=== PATIENT | female | born 1935 | race Caucasian/White ===

== ENCOUNTER → 2021-01-15 20:03 | Outpatient (CLI) | payer MEDICARE ==
[2021-01-15 21:10] LABS: HEMOGLOBIN 9.8 g/dL (12-16); LYMPHOCYTE ABS# 1.41 10x3/uL (1.18-3.74); MCH 27.7 pg (26.0-34.0); MCHC 30.6 g/dL (31.0-37.0); MCV 90.4 fL (80.0-100.0); MEAN PLATELET VOLUME 9.9 fL (7.4-10.4); NEUTROPHIL ABS# 4.08 10x3/uL (1.56-6.13); PLATELET COUNT 482 10x3/uL (130-400); RBC 3.54 10x6/uL (4.00-5.40); RDW 14.9 % (11.5-14.5); WBC 6.4 10x3/uL (4.8-10.8)
[2021-01-15 21:21] LABS: INR 1.66 (0.85-1.17); PROTIME 18.2 SECONDS (11.6-15.0)
[2021-01-15 21:31] LABS: CALC OSMOLALITY 275 mosm/kg (275-300); CALCIUM 8.7 mg/dL (8.5-10.1); CARBON DIOXIDE 26.6 mmol/L (21.0-32.0); CHLORIDE - SERUM 103 mmol/L (98-107); CREATININE - SERUM 0.6 mg/dL (0.6-1.3); DIGOXIN 1.44 ng/mL (0.90-2.00); GLUCOSE 104 mg/dL (74-106); POTASSIUM - SERUM 4.3 mmol/L (3.5-5.1); SODIUM 139 mmol/L (136-145); UREA NITROGEN 7 mg/dL (7-18); eGFR NON AFRICAN AMERICAN > 90 mL/min (90-120)
[2021-01-15 21:37] LABS: LYMPHOCYTES 26 % (15-50); MONOCYTES 9 % (2-11); NEUTROPHILS 64 % (40-80); PLATELET ESTIMATE INCREASED
== END | disposition home or self-care (01) ==
LOC: D.LABREF 20:03
PROVIDERS: ATTEND Family Medicine
DX: I10 Essential (primary) hypertension (principal); I48.91 Unspecified atrial fibrillation; N39.0 Urinary tract infection, site not specified; M25.562 Pain in left knee

== ENCOUNTER → 2021-01-16 16:45 | Outpatient (CLI) | payer MEDICARE ==
[2021-01-16 17:14] LABS: INR 1.94 (0.85-1.17); PROTIME 20.6 SECONDS (11.6-15.0)
== END | disposition home or self-care (01) ==
LOC: D.LABREF 16:45
PROVIDERS: ATTEND Family Medicine
DX: I48.91 Unspecified atrial fibrillation (principal); Z79.899 Other long term (current) drug therapy

== ENCOUNTER → 2021-01-19 20:51 | Outpatient (CLI) | payer MEDICARE ==
[2021-01-19 21:29] LABS: INR 2.7 (0.85-1.17); PROTIME 26.7 SECONDS (11.6-15.0)
== END | disposition home or self-care (01) ==
LOC: D.LABREF 20:51
PROVIDERS: ATTEND Family Medicine
DX: Z79.01 Long term (current) use of anticoagulants (principal)

== ENCOUNTER → 2021-01-26 14:57 | Outpatient (CLI) | payer MEDICARE ==
[2021-01-26 19:45] LABS: BILIRUBIN NEGATIVE (NEGATIVE); KETONE SMALL mg/dL (NEGATIVE); NITRITE NEGATIVE (NEGATIVE); UROBILINOGEN NORMAL mg/dL (< 2)
[2021-01-26 19:48] LABS: AMORPHOUS SEDIMENT >1+ LPF (NONE SEEN); BACTERIA MODERATE HPF (NONE SEEN); WHITE CELLS - URINE 0-5 HPF (0-4)
== END | disposition home or self-care (01) ==
LOC: D.LABREF 14:57
PROVIDERS: ATTEND Family Medicine
DX: I48.91 Unspecified atrial fibrillation (principal); N39.0 Urinary tract infection, site not specified

== ENCOUNTER → 2021-02-02 20:20 | Outpatient (CLI) | payer MEDICARE | END | disposition home or self-care (01) | LOC: D.LABREF 20:20 | PROVIDERS: ATTEND Family Medicine | DX: Z79.01 Long term (current) use of anticoagulants (principal) ==

== ENCOUNTER → 2021-02-03 19:40 | Outpatient (CLI) | payer MEDICARE ==
[2021-02-03 20:30] LABS: INR 14.05 (0.85-1.17); PROTIME 97.7 SECONDS (11.6-15.0)
== END | disposition home or self-care (01) ==
LOC: D.LABREF 19:40
PROVIDERS: ATTEND Family Medicine
DX: Z79.01 Long term (current) use of anticoagulants (principal)

== ENCOUNTER → 2021-02-04 19:52 | Outpatient (CLI) | payer MEDICARE ==
[2021-02-04 20:52] LABS: INR 6.21 (0.85-1.17); PROTIME 51.4 SECONDS (11.6-15.0)
== END | disposition home or self-care (01) ==
LOC: D.LABREF 19:52
PROVIDERS: ATTEND Family Medicine
DX: Z79.01 Long term (current) use of anticoagulants (principal)

== ENCOUNTER → 2021-02-05 16:38 | Outpatient (CLI) | payer MEDICARE ==
[2021-02-05 17:55] LABS: INR 2.68 (0.85-1.17); PROTIME 26.5 SECONDS (11.6-15.0)
== END | disposition home or self-care (01) ==
LOC: D.LABREF 16:38
PROVIDERS: ATTEND Family Medicine
DX: Z79.01 Long term (current) use of anticoagulants (principal)

== ENCOUNTER → 2021-02-06 15:36 | Outpatient (CLI) | payer MEDICARE ==
[2021-02-06 17:49] LABS: INR 2.95 (0.85-1.17); PROTIME 28.6 SECONDS (11.6-15.0)
== END | disposition home or self-care (01) ==
LOC: D.LABREF 15:36
PROVIDERS: ATTEND Family Medicine
DX: Z79.01 Long term (current) use of anticoagulants (principal)

== ENCOUNTER → 2021-02-09 15:54 | Outpatient (CLI) | payer MEDICARE ==
[2021-02-09 16:13] LABS: HEMOGLOBIN 8.2 g/dL (12-16); MCHC 31.7 g/dL (31.0-37.0); MCV 82.1 fL (80.0-100.0); PLATELET COUNT 496 10x3/uL (130-400); RBC 3.16 10x6/uL (4.00-5.40); RDW 17.9 % (11.5-14.5)
[2021-02-09 16:25] LABS: INR 4.3 (0.85-1.17); PROTIME 38.4 SECONDS (11.6-15.0)
[2021-02-09 16:32] LABS: EOSINOPHILS 1 % (0-7); LYMPHOCYTES 17 % (15-50); MONOCYTES 14 % (2-11); NEUTROPHILS 66 % (40-80)
[2021-02-09 16:33] LABS: PLATELET ESTIMATE NORMAL
[2021-02-09 17:12] LABS: ALBUMIN 2.3 g/dL (3.4-5.0); ALKALINE PHOSPHATASE 64 U/L (30-120); ALT (SGPT) 17 U/L (10-68); AMYLASE - SERUM 24 U/L (25-115); BILIRUBIN - TOTAL 0.72 mg/dL (0.2-1.3); CALC OSMOLALITY 274 mosm/kg (275-300); CALCIUM 7.9 mg/dL (8.5-10.1); CARBON DIOXIDE 31.3 mmol/L (21.0-32.0); CHLORIDE - SERUM 101 mmol/L (98-107); CREATININE - SERUM 0.6 mg/dL (0.6-1.3); DIGOXIN 2.57 ng/mL (0.90-2.00); GLUCOSE 98 mg/dL (74-106); LIPASE 46 U/L (73-393); POTASSIUM - SERUM 3.9 mmol/L (3.5-5.1); PROTEIN - SERUM 5.9 g/dL (6.4-8.2); SODIUM 138 mmol/L (136-145); UREA NITROGEN 11 mg/dL (7-18); eGFR NON AFRICAN AMERICAN > 90 mL/min (90-120)
== END | disposition home or self-care (01) ==
LOC: D.LABREF 15:54
PROVIDERS: ATTEND Family Medicine
DX: R11.0 Nausea (principal); Z79.01 Long term (current) use of anticoagulants

== ENCOUNTER → 2021-02-11 21:15 | Outpatient (CLI) | payer MEDICARE ==
[2021-02-11 22:01] LABS: BILIRUBIN NEGATIVE (NEGATIVE); KETONE SMALL mg/dL (NEGATIVE); NITRITE NEGATIVE (NEGATIVE); UROBILINOGEN NORMAL mg/dL (< 2)
== END | disposition home or self-care (01) ==
LOC: D.LABREF 21:15
PROVIDERS: ATTEND Family Medicine
DX: D72.829 Elevated white blood cell count, unspecified (principal)

== ENCOUNTER → 2021-02-19 14:08 | Outpatient (CLI) | payer MEDICARE ==
[2021-02-19 14:37] LABS: BASOPHILS 1.1 % (0-2); EOSINOPHILS 0.4 % (0-7); HEMATOCRIT 28.9 % (36.0-48.0); HEMOGLOBIN 9.1 g/dL (12-16); LYMPHOCYTES 11.3 % (15-50); MCH 25.5 pg (26.0-34.0); MCHC 31.3 g/dL (31.0-37.0); MCV 81.7 fL (80.0-100.0); MEAN PLATELET VOLUME 7.2 fL (7.4-10.4); MONOCYTES 5.9 % (2-11); NEUTROPHILS 81.3 % (40-80); PLATELET COUNT 457 10x3/uL (130-400); RBC 3.54 10x6/uL (4.00-5.40); RDW 18.9 % (11.5-14.5); WBC 8.1 10x3/uL (4.8-10.8)
[2021-02-19 14:41] LABS: INR 1.7 (0.85-1.17); PROTIME 18.5 SECONDS (11.6-15.0)
== END | disposition home or self-care (01) ==
LOC: D.LABREF 14:08
PROVIDERS: ATTEND Family Medicine
DX: Z79.01 Long term (current) use of anticoagulants (principal); Z79.899 Other long term (current) drug therapy; B99.9 Unspecified infectious disease

== ENCOUNTER → 2021-02-23 19:56 | Outpatient (CLI) | payer MEDICARE ==
[2021-02-23 20:23] LABS: INR 1.41 (0.85-1.17)
== END | disposition home or self-care (01) ==
LOC: D.LABREF 19:56
PROVIDERS: ATTEND Family Medicine
DX: Z79.01 Long term (current) use of anticoagulants (principal)

== ENCOUNTER → 2021-03-02 18:56 | Outpatient (CLI) | payer MEDICARE ==
[2021-03-02 19:18] LABS: INR 1.3 (0.85-1.17)
== END | disposition home or self-care (01) ==
LOC: D.LABREF 18:56
PROVIDERS: ATTEND Family Medicine
DX: Z79.01 Long term (current) use of anticoagulants (principal)

== ENCOUNTER → 2021-03-09 21:33 | Outpatient (CLI) | payer MEDICARE ==
[2021-03-09 22:09] LABS: INR 1.37 (0.85-1.17); PROTIME 15.7 SECONDS (11.6-15.0)
== END | disposition home or self-care (01) ==
LOC: D.LABREF 21:33
PROVIDERS: ATTEND Family Medicine
DX: Z79.01 Long term (current) use of anticoagulants (principal)